=== PATIENT | female | born 1930 | race Caucasian/White ===

== ENCOUNTER 2016-12-26 15:57 | Inpatient (IN) | payer MEDICARE, BC ==
[~2016-12-26] VITALS: Ht 167.6 cm; Wt 79.5 kg
[2016-12-26] MEDS ORDERED: LIORESAL 10 MG10 MG PO (20:46)
[2016-12-26] MEDS ORDERED: MYSOLINE 50 MG50 MG PO ×2 (20:47→20:50)
[2016-12-26] MEDS ORDERED: XANAX0.25 MG PO (20:48)
[2016-12-26] MEDS ORDERED: ULTRAM50 MG PO (20:49)
[2016-12-26] MEDS ORDERED: REMERON15 MG PO (20:51)
[2016-12-26] MEDS ORDERED: CARDURA1 MG PO (20:51)
[2016-12-26] MEDS ORDERED: NORVASC10 MG PO (20:51)
[2016-12-26] MEDS ORDERED: IPRATROPIUM BR21 MCG NASAL (20:53)
[2016-12-26] MEDS ORDERED: AZELASTINE137 MCG/0. NASAL (20:53)
[2016-12-26] MEDS ORDERED: DIOVAN80 MG PO (20:54)
[2016-12-26] MEDS ORDERED: FLORANEX / LACT1 TAB PO (20:55)
[2016-12-26] MEDS ORDERED: VENTOLIN HFA18 GM INH (20:56)
[2016-12-26] MEDS ORDERED: FISH OIL 1,0001 CA1 PO (20:57)
[2016-12-26] MEDS ORDERED: PATANOL 0.1 % OP5 ML EACH EYE (20:58)
[2016-12-26] MEDS ORDERED: MULTIPLE VITAMI1 TA1 PO (20:58)
[2016-12-26] MEDS ORDERED: BAYER CHEWABLE81 MG PO (20:59)
--- NOTE | 2016-12-26 23:10 | NUR ---
Patient arrived via EMS at 20:00 from [facility], VSS, verbal consent from by telephone, physician aware of arrival, medications entered, labs ordered, code status is full code per , no known allergies, Code word is 'Such as" , patient had eloped from long-term and was moving [place] [facility] [place] [facility] [place] the area, brought to [facility] ER by police, patient diagnosed with closed compression fracture of L4 lumbar vertebre at [facility].
[2016-12-26 23:42] VITALS: BP 148/77; BMI 24.3
--- NOTE | 2016-12-27 04:15 | NUR ---
PATIENT REFUSED EKG
[2016-12-27 07:47] VITALS: BP 125/80
--- NOTE | 2016-12-27 11:17 | NUR ---
B) PATIENT IS MANIPULATIVE, ATTENTION SEEKING, SHE IS NOT LISTENING, SHE WANTS TO SPEAK OVER ANYONE THAT SPEAKS TO HER, SHE REFUSED HER VALSARTAN THIS AM. SHE WANTS TO PICK AND CHOOSE. PATIENT TALKS ABOUT BEING ANGRY WITH HER DAUGHTER AND HER . SHE C/O BACK PAIN AND HOW SHE HAS TO HAVE HELP. SHE C/O THAT SHE SLEPT IN THE BATHROOM LAST NIGHT BECAUSE SHE WAS COLD. PATIENT IS TRYING TO SPEAK OVER EVERYONE. I) PROVIDE PRESCRIBED MEDS. R) PATIENT IS COMPLIANT WITH MEDS AND UNIT MILIEU. P) CONT. POC.
[2016-12-27 16:09] VITALS: BMI 24.2
[2016-12-27 19:00] VITALS: BP 179/88
--- NOTE | 2016-12-28 01:28 | NUR ---
B) Recieved patient in the day room alert and oriented X 3, hyperverbal and intrusive, social with peers, attention seeking, I) Administered perscribed medications, redirected as needed, monitored for safety, R) Medication compliant, refuses to sleep in her bed, sleeping in her wheelchair in her room, P) Continue plan of care.
[2016-12-28 07:57] LABS: BASOPHILS 0.2 % (0-2); EOSINOPHILS 0.2 % (0-7); HEMATOCRIT 37.4 % (36.0-48.0); IMMATURE GRANULOCYTES 0.5 % (0-5); LYMPHOCYTES 20.5 % (15-50); MCH 31.6 pg (26.0-34.0); MCHC 32.1 g/dL (31.0-37.0); MCV 98.4 fL (80.0-100.0); MEAN PLATELET VOLUME 9.6 fL (7.4-10.4); MONOCYTES 6.8 % (2-11); NEUTROPHILS 71.8 % (40-80); PLATELET COUNT 159 10x3/uL (130-400); RDW 13.5 % (11.5-14.5); WBC 4.1 10x3/uL (4.8-10.8)
[2016-12-28 08:26] LABS: HEMOGLOBIN A1C 5.9 % (4.8-6.0)
[2016-12-28 08:31] LABS: ANION GAP 12.3 mmol/L (8-16); BILIRUBIN - TOTAL 0.23 mg/dL (0.2-1.3); CALCIUM 8.1 mg/dL (8.5-10.1); CARBON DIOXIDE 29.4 mmol/L (21.0-32.0); CHOL - HDL RATIO 2.9 ratio (2.3-4.1); CREATININE - SERUM 0.9 mg/dL (0.6-1.3); LDL-HDL RATIO 1.7 ratio (1.5-3.5); POTASSIUM - SERUM 4.7 mmol/L (3.5-5.1); PROTEIN - SERUM 6.6 g/dL (6.4-8.2); THYROID STIMULATING HORMONE 1.69 uIU/mL (0.36-3.74)
[2016-12-28 09:07] VITALS: BP 129/54
--- NOTE | 2016-12-28 11:10 | NUR ---
B) PATIENT IS TOO SLEEPY THIS AM TO TAKE HER PILLS AND SHE WAS NOT ABLE TO AWAKEN FOR HER TESTING WITH DR. LEACH TODAY. SHE IS STILL SLEEPING IN DAY ROOM NOW.
--- NOTE | 2016-12-28 14:16 | NUR ---
PATIENT IS AWAKE AND SHE IS CONFUSED, SHE IS SPEAKING WITH A PATIENT WHO IS SEVERLY DEMENTED AND SHE IS MAKING A FULL CONVERSATION, SHE IS ELEVATED IN MOOD. PATIENT IS HYPERVERBAL AND CONTINUES TO MAKE DELUSIONAL STATEMENTS. SHE IS SAYING THAT "GOD IS WORKING IN PERILOUS WAYS" SHE IS TELLING OTHER PATIENTS THAT THEY NEED TO TELL ALL OF THEIR SINS BECAUSE THEY HAVE TO BRING EVERYTHING TO A HEAD. SHE IS TRYING TO TALK OTHER PATIENTS INTO GETTING A HOME AND THEY CAN RENT A ROOM.
--- NOTE | 2016-12-28 15:52 | NUR ---
PATIENT IS MANIPULATING AND TELLING ANOTHER PATIENT THAT SHE IS FINE, NO PROBLEMS WITH HER MENTALLY, SHE NEEDS TO MOVE OUT AND GET HER OWN PLACE AND GO GET DNA ON HER CHILD TO PROVE SHE IS THE MOTHER. THE PATIENT DOESN'T KNOW IF SHE HAS A CHILD. PATIENT IS ARGUING AND ESCALATING. SHE IS CONFUSING THE OTHER PATIENT.
--- NOTE | 2016-12-28 16:42 | NUR ---
PATIENT FUSSING ABOUT THAT LAB NEVER HAS TAKEN HER BLOOD. EXPLAINED TO HER THAT SHE HAS REFUSED TWO TIMES, BUT SHE BECAME ARGUMENTATIVE. STOPPED DISCUSSING THE SUBJECT WITH THE PATIENT.
--- NOTE | 2016-12-28 17:58 | NUR ---
PATIENT IS CURSING AND RANTING AND RAVING BECAUSE SHE WANTS HER TRAY BROUGHT TO HER. SHE REFUSES TO GET UP AND WALK, PATIENT HAS BEEN WALKING USING A WALKER. NOW, SUDDENLY SHE IS DEMANDING THAT STAFF BRING HER TRAY. SHE IS SCREAMING "I AM HYNGRY" EXPLAINED TO HER THAT SHE CAN AMBULATE TO THE DAY ROOM WHERE HER DINNER IS WAITING. SHE BEGINS DEMANDING THAT I ORDER AN MRI. EXPLAINED TO HER CALMLY THAT IS A DOCTORS CALL. PATIENT BEGINS SCREAMING AND YELLING. EXPLAINED TO HER THAT SHE NEEDS TO GET HER VOICE AND HER BEHAVIOR UNDER CONTROL SHE CAN HAVE A PRN MEDICATION FOR HER ANXIETY AND AGITATION. SHE STOPPED YELLING AND SCREAMING, BUT THEN BEGAN SPEAKING ABOUT THE STAFF IN A DEAMEANING, NEGATIVE MANNER. SAYING "WELL, YOU CAN ORDER AN MRI, MY CHIROPRACTOR DID, WELL HE HAS MORE SENSE THAN YOU DO" EXPLAINED THAT HER NEGATIVE COMMENTS WERE NOT WELCOME AND SHE NEEDED TO SELF CALM. PATIENT IS SO LABILE. SHE VASCILATES BETWEEN SMILING AND BEING ELEVATED AND HAPPY TO BEING IRRITABLE AND NEGATIVE AND ARGUMENTATIVE.
[2016-12-28 19:30] VITALS: BP 169/86
--- NOTE | 2016-12-29 00:53 | NUR ---
B) Recieved patient in the hallway, alert and oriented to person and place, hyperverbal, talking to other patients telling them what they should do, intrusive in the care of other patients, I) Administered perscribed medications, redirected as needed, R) Medication compliant, defiant toward staff, refuseing to go to bed, remains in the hallway in her wheelchair instead of going to bed, P) Continue plan of care.
[2016-12-29 06:13] LABS: RAPID PLASMA REAGIN Non Reactive (Non Reactive)
[2016-12-29 08:11] VITALS: BP 154/78
[2016-12-29 08:15] LABS: FOLATE (FOLIC ACID) - SERUM 13.3 ng/mL (>3.0)
--- NOTE | 2016-12-29 12:19 | NUR ---
B) PATIENT IS GRANDIOSE AND MANIPULATIVE. SHE IS DELUSIONAL IN HER THINKING, SHE BELIEVES THAT HER WORDS ARE HELPING ALL OF THE OTHER PATIENTS FEEL WELL. SHE IS ARGUING WITH STAFF. WHEN PATIENT IS REMINDED TO GET IN HER OWN VADIM MEANING TO ATTEND TO HER OWN AFFAIRS AND NOT OTHER PATIENTS SHE CONTINUES TO TELL THEM THEY ARE "FINE" STAFF ARE THE SICK ONES, SHE ALSO HAS BEEN PITTING STAFF ONE AGAINST THE OTHER BY SAYING HOW "GOOD' ONE IS COMPARED TO THE OTHER. PATIENT IS CRYING AND COMPLAINING THAT SHE HAS NOT EATEN IN 2 DAYS AND HAS HAD TO SLEEP IN THE BATHROOM, WHEN REDIRECTED TO REALITY PATIENT BECAME ARGUMENTATIVE AND YELLING. SHE HAS BEEN ARGUING AND NOT LISTENING TO REDIRECTION ALL AM, MAKING DEMANDS ABOUT WHAT SHE SHOULD GET TO WATCH ON TV AND WHAT SHE SHOULD GET TO EAT RIGHT NOW. I) ATIVAN 0.5 MG AND HALDOL 2 MG IM GIVEN IN LEFT HIP. R) PATIENT SCREAMING AND YELLING HOW SHE WILL TURN US INTO MEDICARE AND HOW WE ARE EVIL. PATIENT THEN SAYS "I'M SORRY, I KNOW YOU WERE MADE TO DO THAT, I WILL PRAY FOR ALL OF YOU, THEN SHE BEGINS A PRAYER, BUT THEN ANOTHER PATIENT BEGINS TO TALK TO ANOTHER PATIENT AND SHE STOPS PRAYING TO INTRUDE UPON THEIR CONVERSATION. MANY ATTEMPTS HAVE BEEN MADE TO EXPLAIN TO HER THAT SHE IS SICK AND NEEDS TO BE HERE. PATIENT WANTS TO ARGUE AND DIAGNOSE THE PATIENTS AND THE STAFF. SHE OFTEN TELLS OTHER MANIC PATIENTS THEY ARE FINE AND SHE HAS STATED THE DEMENTED PATIENTS ARE FINE ALSO AND THEY NEED TO GET TOGETHER AND RENT A HOUSE. PATIENT IS NOT AMBULATING TODAY. SHE HAS CHOSEN NOT TO. SHE WAS ABLE TO WALK WHEN SHE CAME IN. P) CONT. POC.
--- NOTE | 2016-12-29 12:34 | NUR ---
EFRAIN PROVIDED A WALKER, NOW SHE IS YELLING "I CAN'T WALK, THEY TOOK MY CANE" PATIENT IS BEING DRAMATIC IN HER YELLING AND ACTIONS STATING "GOD HELP ME".
--- NOTE | 2016-12-29 13:00 | NUR ---
PATIENT IS STILL TALKING AND RAMBLING, TELLING THE OTHER PATIENTS HOW THEY ARE ALL FINE, THERE'S NOTHING WRONG WITH YOU, YOU NEED TO DO THUS AND THUS. SHE HAS THE GRANDIOSE BELEIF THAT SHE HERSELF HAS MADE THE PATIENTS SO MUCH BETTER.
--- NOTE | 2016-12-29 13:40 | NUR ---
PATIENT IS GETTING QUIET, SHE IS INTERMITTANT. SHE DOSES OFF THEN SAYS "I NEED THE TV CHANNEL CHANGED" THEN THE NEXT BREATH SHE WILL BE SNORING. PATIENT DID THIS FOR ABOUT 30 MINUTES UNTIL SHE FELL ASLEEP.
--- NOTE | 2016-12-29 14:09 | NUR ---
ONE OF PATIENTS DAUGHTERS CALLED AND DID LET HER KNOW HOW HER BEHAVIOR HAS BEEN. DAUGHTER SAYS SHE IS FULL AWARE OF HER MOTHERS BEHAVIOR, BUT SHE WAS HOPING SHE WAS A LITTLE BETTER. SHE SAYS SHE WILL TRY TO CALL LATER AT PHONE CALL TIMES, BUT SHE SAYS SHE IS AWARE THAT HER MOTHER IS ANGRY WITH ALL OF THE GIRLS AND PROBABLY WILL NOT SPEAK TO HER.
--- NOTE | 2016-12-29 17:40 | NUR ---
PATIENT'S SON CALLED TO SPEAK TO HIS MOTHER, BUT PATIENT IS SLEEPING.
[2016-12-29 19:30] VITALS: BP 170/78
--- NOTE | 2016-12-29 19:41 | NUR ---
RECEIVED IN HALLWAY. SITTING IN RECLINER OUTSIDE OF NURSES STATION. HYPERVERBAL. CALM AND COOPERATIVE WITH CARE AND ASSESSMENTS. ATTENTION SEEKING. CONTINUES TO SIT IN RECLINER IN HALLWAY. CONTINUE PLAN OF CARE
[2016-12-30 07:00] VITALS: BP 128/72
--- NOTE | 2016-12-30 18:01 | NUR ---
B) PATIENT IS RAMBLING ON AND ON, SHE HAS NO BOUNDARIES AND SHE IS BEING INTRUSIVE. SHE HAS NOT YELLED OR CURSED, JUST GETS IN EVERYONE'S CONVERSATION. SHE IS LABILE AND CRIES AT TIMES. DURING VISITATION SHE BEGAN CRYING SAYING "I DON'T HAVE ANY FAMILY, NO ONE WILL EVER COME VISIT ME" PATIENT IS DRAMATIC IN HER BEHAVIOR. IT IS EXTREME NEGATIVE OR EXTREME POSITIVE. I) PROVIDE PRESCRIBED MEDS AND REDIRECT NEEDED. R) PATIENT IS COMPLIANT WITH MEDS AND UNIT MILIEU. P) CONTINUE POC.
[2016-12-30 19:30] VITALS: BP 153/72
--- NOTE | 2016-12-30 20:06 | NUR ---
RECEIVED IN HALLWAY. SITTING IN A CHAIR AT NURSES STATION. ALERT AND ORIENTED. ATTENTION SEEKING. DEMANDING. COOPERATIVE WITH ASSESSMENT AND VITALS. REDIRECT AND REORIENT NEEDED. RESTING IN CHAIR IN HER ROOM AT THIS TIME. CONTINUE PLAN OF CARE
--- NOTE | 2016-12-31 00:03 | NUR ---
PATIENT REQUESTED SOMETHING FOR ANXIETY. PRN ATIVAN 0.5 MG PO PULLED AND SCANNED. PATIENT THEN STATED SHE WOULD NOT TAKE THAT DOSE AND WANTED ONLY PART OF IT. REFUSUNG HER ORDERED DOSAGE.
[2016-12-31 07:00] VITALS: BP 163/70
[2016-12-31 10:11] LABS: VITAMIN D 25 HYDROXY 31.5 ng/mL (30.0-100.0)
--- NOTE | 2016-12-31 10:30 | NUR ---
LYING IN BED, INCONTINENT, AND YELLING OUT WITH A BACK SPASM. VERY DRAMATIC DURING PROCESS OF GETTING HER OUT OF BED. ADMINISTER PRESCRIBED MEDS. VSS. COMPLIANT WITH TAKIMG MEDS. MONITOR FOR SAFETY AND FALLS. CONTINMUE POC.
[2016-12-31 19:45] VITALS: BP 144/82
--- NOTE | 2016-12-31 22:16 | NUR ---
RECEIVED IN BEDROOM. SITTING IN RECLINER WITH EYES CLOSED. REFUSED MEDS ON FIRST ATTEMPT. CALM AND COOPERATIVE WITH CARE AND ASSESSMENTS. YELLING OUT. REDIRECT AND REORIENT. TOOK PM MEDS AFTER REDIRECTION. RESTING IN RECLINER IN BEDROOM AT THIS TIME. CONTINUE PLAN OF CARE
[2017-01-01 08:00] VITALS: BP 131/77
--- NOTE | 2017-01-01 13:54 | PN ---
PATIENT:YELENA FORBES MEDICAL RECORD: [id number] LOCATION:[facility] ADMISSION DATE: 12/26/16 PROGRESS NOTE DATE OF SERVICE: 12/31/2016 SUBJECTIVE: The patient's case was discussed with staff. She has no new complaint. OBJECTIVE: The patient denies intent to harm herself or others. She generally tolerates her medicines well. She is currently making what appeared to be delusional statements about her . ASSESSMENT: No change in diagnoses. PLAN: Supportive and educational interventions were made. The patient is tolerating her medications well. TRANSINT:[id number] Voice Confirmation ID: [id number] DOCUMENT ID: [id number] ADIEL CRAFT MD at 1354 CC: [id number] DICTATION DATE: 12/31/16909 INDUSTRIAL EQUIPMENT MECHANIC: 12/31/16 0951 ADM IN [place] [id number] [place] [id number]
[2017-01-01 19:30] VITALS: BP 172/84
--- NOTE | 2017-01-01 19:34 | NUR ---
B) SITTING IN RECLINER IN ROOM, STARTED SCREAMING AND YELLING OUT WITH HER BACK SPASMING. ASSISTED PATIENT WITH PUTTING ON SCRUB PANTS. AMBULATED INTO HALLWAY. RAMBLES ON CONSTANTLY WITH STAFF AND PEERS, GOES FROM ONE SUBJECT TO ANOTHER. TALKS NON-STOP AND OVER DRAMATIC ABOUT EVERYTHING. I) ADMINISTERED PRESCRIBED MEDICATIONS. VSS. R) CONPLAINT WITH TAKING MEDS, P) WILL CONTINUE WITH PLAN OF CARE.
--- NOTE | 2017-01-01 21:40 | NUR ---
RECEIVED IN HALLWAY. SITTING IN WHEELCHAIR AT NURSES STATION. HYPERVERBAL. VERBALLY ABUSIVE. INTRUSIVE. REFUSED VITAL SIGNS. REFUSED TO GO TO BED. BECAME COMBATIVE WTIH REDIRECTION AT BEDTIME. HITTING NURSE WITH BRUSH AND MAGAZINE. SCRATCHING MHT. REDIRECT AND REORIENT NEEDED. TOOK PM MEDS WITH REDIRECTION. ALLOWED PM VITALS WITH MED PASS. RESTING WITH EYES CLOSED IN RECLINER IN ROOM AT THIS TIME. CONTINUE PLAN OF CARE.
--- NOTE | 2017-01-02 04:30 | NUR ---
PATIENT STATED THAT SHE WOULD PUT HERSELF IN THE FLOOR AGAIN MANY TIMES. RETURNED TO HER BED AND WITH IN 15 MINUTES PATIENTS BED ALARM SOUNDED WITH ANOTHER ATTEMPT TO PUT HERSELF BACK INTO FLOOR.
[2017-01-02 07:44] VITALS: BP 145/89
--- NOTE | 2017-01-02 07:56 | PN ---
PATIENT:YELENA FORBES MEDICAL RECORD: [id number] LOCATION:[facility] ADMISSION DATE: 12/26/16 PROGRESS NOTE DATE OF SERVICE: 01/01/2017 SUBJECTIVE: The patient's case was discussed with staff. She has no new complaint. OBJECTIVE: The patient is in good behavioral control with limited insight about her condition. She generally tolerates her medicines well. Eye contact is fair. Concentration is fair. She does have some mood lability. ASSESSMENT: No change in diagnoses. PLAN: The patient will be treated with Depakote at a slightly higher dose. Her blood level yesterday was 28. I am going to double the amount she is getting and hopefully achieve a therapeutic blood level in a few days. TRANSINT:[id number] Voice Confirmation ID: [id number] DOCUMENT ID: [id number] ADIEL CRAFT MD at 0756 CC: [id number] DICTATION DATE: 01/01/17 1425 MOTOR MECHANIC: 01/01/17 2041 ADM IN [place] [id number] [place] [id number]
--- NOTE | 2017-01-02 12:00 | NUR ---
B) PATIENT CONTINUES WITH HYPERVERBALIZATION, SHE IS INTO OTHER PATIENTS BUSINESS, SHE IS CONCERNED WITH HERSELF ONLY. SHE IS COMPLAINING ABOUT NIGHT SHIFTS CARE FOR SHE AND THE OTHER PATIENTS, SHE NEEDED TO BE REDIRECTRED ABOUT THAT. PATIENT TRIES TO PIT ONE STAFF AGAINST THE OTHER. PATIENT AMBULATES WITH A WALKER OR SELF PROPELS WITH A W/C. I) PROVIDE PRESCRIBED MEDS. R) PATIENT IS COMPLIANT WITH MEDS, ALTHOUGH, SHE SAID SHE DIDN'T WANT TO TAKE THE DEPAKOTE SHE DOES NOT THINK SHE HAS ANYTHING WRONG WITH HER. P) CONTINUE POC.
--- NOTE | 2017-01-02 15:30 | NUR ---
Nutrition Follow Up: Pt is eating 90% meal avg on a regular diet. No new wt to assess. No BM since admit (x 7 days). Labs reviewed. Meds noted including Colace, MV. Rec continue current diet. RD following.
[2017-01-02 20:02] VITALS: BP 103/58
--- NOTE | 2017-01-03 00:36 | NUR ---
B) Recieved patient in her room, alert and oriented to self and being in a hospital, negative outlook, intrusive and tries to staff split, I) Administered perscribed medications after explaning every pill, R) Medication compliant, argumentive and unpleasant, P) Continue plan of care.
--- NOTE | 2017-01-03 08:22 | PN ---
PATIENT:YELENA FORBES MEDICAL RECORD: [id number] LOCATION:[facility] ADMISSION DATE: 12/26/16 PROGRESS NOTE DATE OF SERVICE: 01/02/2017 SUBJECTIVE: The patient's case was discussed with staff. She has no new complaint. OBJECTIVE: The patient denies intent to harm herself or others. She generally tolerates her medicines well. Eye contact is fair. Concentration is fair. She still makes a number of delusional statements. ASSESSMENT: No change in diagnoses. PLAN: Current medicines and therapies have been reviewed. Her long-term prognosis is guarded. Brief supportive and educational interventions were made. TRANSINT:[id number] Voice Confirmation ID: [id number] DOCUMENT ID: [id number] ADIEL CRAFT MD at 0822 CC: [id number] DICTATION DATE: 01/02/17 1617 PINNER PRINTED CIRCUIT BOARDS: 01/03/17 0058 ADM IN [place] [id number] [place] [address]
[2017-01-03 09:21] VITALS: BP 155/77
--- NOTE | 2017-01-03 13:00 | NUR ---
B) PATIENT IS AWAKE AND ALERT, SHE SOCIALIZES AND INTERACTS WITH PEERS AND STAFF. PATIENT WALKS WITH A WALKER. I) PROVIDE PRESCRIBED MEDS. R) PATIENT IS COMPLIANT WITH MEDS AND UNIT MILIEU. P) CONTINUE POC.
[2017-01-03 18:53] VITALS: BP 152/75
--- NOTE | 2017-01-04 00:37 | NUR ---
B) Recieved patint in the hallway, alert and oriented to self and being in a hospital, social and friendly at times, demanding at times, I) Administered perscribed medications, monitored for falls and safety, R) Medication compliant, p) Continue plan of care.
[2017-01-04 08:40] VITALS: BP 143/84
--- NOTE | 2017-01-04 09:21 | NUR ---
YOGI SPOKE WITH DTR, HUMAIRA, ABOUT TREATMENT AND DISCHARGE PLANNING. YOGI REPORTED MEDICATION REGIMEN. YOGI ALSO STATED PT WILL HAVE COGNITIVE TESTING TODAY. HUMAIRA VERBALIZED UNDERSTANDING.
--- NOTE | 2017-01-04 11:13 | NUR ---
B) PATIENT IS AWAKE AND ALERT AND ORIENTED X3, SHE, HOWEVER HAS POOR INSIGHT INTO HER ILLNESS, SHE IS IN DENIAL OF HAVING BIPOLAR AND DOES NOT FEEL SHE HAS DONE ANYTHING ABNORMAL. SHE IS IN BELIEF THAT SHE IS THE "VICTIM" AND HER AND DAUGHTER ARE OUT TO GET HER MONEY AND TAKE CONTROL OF HER. PATIENT AMBULATES WITH A WALKER. VALUE ANALYST SAID SHE WAS NEGATIVE ALL NIGHT LONG. I) PROVIDE PRESCRIBED MEDS, REDIRECT TO APPROPRIATATE BEHAVIOR. R) PATIENT NEEDS MULTIPLE PROMPTS TO STAY IN HER OWN VADIM AND TRY TO MIND HER OWN AFFAIRS, NIT OTHER PATIENTS. P) CONTINUE POC.
[2017-01-04 15:18] VITALS: BMI 25.0
[2017-01-04 19:30] VITALS: BP 178/86
--- NOTE | 2017-01-05 03:45 | NUR ---
B) Patient is alert and oriented to self and hospital, poor insight into why she is here, negative outlook and episodes of crying followed by thanking staff for taking care of her, I) Administered perscribed medications, monitored for safety and falls, R) Medication compliant, needy at times, P) Continue plan of care.
[2017-01-05 10:02] VITALS: BP 178/89
--- NOTE | 2017-01-05 13:00 | NUR ---
B) AWAKE AND ORIENTED X3. SITTING IN RECLINER, NO DISTRESS NOTED. CALM AND COOPERATIVE WITH ASSESSMENT. HYPERVERBAL AND ANSWERS QUESTIONS FOR OTHERS. I) ADMINISTERED PRESCRIBED MEDICATIONS. REDIRECT AND REORIENTED NEEDED. R) COMPLIANT WITH TAKING MEDICATIONS. MONITOR FOR SAFETY AND FALLS. P) WILL CONTINUIE PLAN OF CARE.
[2017-01-05 19:30] VITALS: BP 121/89
--- NOTE | 2017-01-05 21:18 | NUR ---
B) PATIENT IS HER SAME OVERLY TALKATIVE SELF, SHE IS IN OTHER [employer] BUSINESS AND SHE IS REPETITIVE IN HER COMMENTS AND SHE IS ORIENTED TO PERSON AND TIME. PATIENT AMBULATES WITH HER WALKER. TONIGHT SHE HAS NOT BEEN AGGRESSIVE OR BEEN IN A [place]. I) PROVIDE PRESCRIBED MEDS AMD REDIRECT TO APPROPRIATE BEHAVIOR NEEDED. R) PATIENT IS COMPLIANT WITH MEDS. TONIGHT SHE TOOK HER MEDS AND SHE WAS DIRECTED TO HER ROOM AND SHE FELL ASLEEP EASILY. P) CONTINUE POC.
--- NOTE | 2017-01-06 08:00 | NUR ---
ASSESSMENT COMPLETE. SITTING UP ON SIDE OF BED. R LEG SWOLLEN AND REDDENED. SPEAKS FREQUENTLY ABOUT HELPING OTHERS AND PRAYING FOR OTHERS.
[2017-01-06 09:23] VITALS: BP 135/69
--- NOTE | 2017-01-06 15:05 | NUR ---
SITTING UP IN CHAIR. HAVING CONVERSATION WITH ANOTHER PATIENT. VERY TALKATIVE AT THIS TIME. MOOD CALM.
[2017-01-06 19:30] VITALS: BP 123/71
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
--- NOTE | 2017-01-07 00:36 | NUR ---
Patient got up, while staff were looking, pulled her briefs down urinated in her bed, pulled her briefs back on and sat in her urine. Refused staff assistance to go to the toilet to void. Loud yelling, rude, demanding, but then did get out of bed and allow staff to change all the linens and assist her with hygiene care and changing into dry clothes. Resettled back into bed.
[2017-01-07 07:48] VITALS: BP 116/66
--- NOTE | 2017-01-07 09:48 | PN ---
PATIENT:YELENA FORBES MEDICAL RECORD: [id number] LOCATION:[facility] ADMISSION DATE: 12/26/16 PROGRESS NOTE DATE OF SERVICE: 01/04/2017 SUBJECTIVE: No new complaint. OBJECTIVE: The patient has exhibited a great deal of problematic behavior over the last 24 hours. She is very intrusive, attention seeking, and disruptive, and has to be redirected. She is receiving neuropsychological testing today. On exam, mood is somewhat irritable. Affect is childlike. Speech is tangential. Content of thought focuses on somatic concerns. Sensorium shows no change. ASSESSMENT: No change in diagnosis. PLAN: 1. Maintain current medication. 2. Continue supportive therapy. TRANSINT:[id number] Voice Confirmation ID: [id number] DOCUMENT ID: [id number] ALONDRA FIERRO III, MD at 0948 CC: [id number] DICTATION DATE: 01/04/17 1229 GRINDING WHEEL DRESSER: 01/04/17 2117 ADM IN [place] [id number] [place] [id number]
--- NOTE | 2017-01-07 12:28 | NUR ---
PT CONTINUES TO MAKE RANDOM DELUSIONAL STATEMENTS. PT IS INTRUSIVE INTO THE CARE OF OTHERS. PT IS HOARDING DIFFERENT ITEMS IN HER ROOM AND REFUSES TO ALLOW STAFF TO REMOVE THEM. EDUCATED PT ON IMPORTANCE OF NOT HOARDING THINGS. FREQUENT REDIRECTION DONE WITH PT ON CURRENT ENVIORNMENT AND REALITY BASES THINKING. MEDICATIONS GIVEN ORDERED. FALL PRECAUTIONS MAINTAINED. WILL CONTINUE TO MONITOR AND CONTINUE WITH PLAN OF CARE.
--- NOTE | 2017-01-07 13:33 | PN ---
PATIENT:YELENA FORBES MEDICAL RECORD: [id number] LOCATION:[facility] ADMISSION DATE: 12/26/16 PROGRESS NOTE DATE OF SERVICE: 01/03/2017 SUBJECTIVE: The patient's case was discussed with staff. She has no new complaint. OBJECTIVE: The patient denies that she would seek to harm herself or others. She generally tolerates her medicines well. She is in good behavioral control today. ASSESSMENT: No change in diagnoses. PLAN: The patient will have a Depakote level checked. Her long-term prognosis is guarded. Brief supportive and educational interventions were made. TRANSINT:[id number] Voice Confirmation ID: [id number] DOCUMENT ID: [id number] ADIEL CRAFT MD at 1333 CC: [id number] DICTATION DATE: 01/03/17 1343 UX UI DESIGNER: 01/03/17 2157 ADM IN [place] [id number] [place] [id number]
[2017-01-07 19:29] VITALS: BP 152/89
--- NOTE | 2017-01-08 02:33 | NUR ---
B) Patient alert and oriented to self and being in hospital, argumentive and refusing care one minute then thanking you for care a few minutes later, intrusive in the care of other patients, I) Administered perscribed medications, redirected as needed for intrusive behavior, R) Medication compliant, resting now quietly in bed, P) Continue plan of care.
[2017-01-08 10:18] VITALS: BP 171/72
--- NOTE | 2017-01-08 10:29 | NUR ---
PT CONTINUES TO BE INTRUSIVE INTO THE CARE OF OTHER PTS. PT REQUIRES FREQUENT REDIRECTION INTO REALITY AND APPROPRIATE BEHAVIOR. NO AGGRESSION NOTED. PT DOES BECOME AGITATED WHEN DISCUSSING HER FAMILY. ENCOURAGED PT TO USE HER COPING SKILLS TO DEAL WITH HER EMOTIONS. VERBALIZED UNDERSTANDING. MEDICATIONS GIVEN ORDERED. FALL PRECAUTIONS MAINTAINED. WILL CONTINUE TO MONITOR AND CONTINUE WITH PLAN OF CARE.
--- NOTE | 2017-01-08 14:26 | PN ---
PATIENT:YELENA FORBES MEDICAL RECORD: [id number] LOCATION:[facility] ADMISSION DATE: 12/26/16 PROGRESS NOTE DATE OF SERVICE: 01/07/2017 SUBJECTIVE: The patient's case was discussed with staff. She has no new complaint. OBJECTIVE: The patient denies intent to harm herself or others. She generally tolerates her medicines well. ASSESSMENT: No change in diagnoses. PLAN: Supportive and educational interventions were made. The patient's long-term prognosis is guarded. I am going to check a Depakote level tomorrow morning. TRANSINT:[id number] Voice Confirmation ID: [id number] DOCUMENT ID: [id number] ADIEL CRAFT MD at 1426 CC: [id number] DICTATION DATE: 01/07/17 1341 FERRYBOAT OPERATOR: 01/07/17 2215 ADM IN [place] [id number] [place] [address]
--- NOTE | 2017-01-08 14:35 | NUR ---
Nutrition follow-up: Diet: Regular PO intake ~75% average of meals labs reviewed +BM Wt: 155# RDN following.
[2017-01-08 19:30] VITALS: BP 159/86
--- NOTE | 2017-01-09 00:34 | NUR ---
B) Patient alert and oriented to self and being in a hospital, calm and cooperative, intrusive with other patients at times, I) Administered perscribed medications, monitored for safety, redirected as needed, R) Medication compliant, wants to know the name of every pill, P) Continue plan of care.
[2017-01-09 08:37] VITALS: BP 123/89
--- NOTE | 2017-01-09 10:28 | NUR ---
B) Rec'd pt in dining room for b'fast, alert, hyper-verbal, attempts to diagnose other patients. Appetite good, feeds self, no difficulty chewing/swallowing. I) Admin meds as ordered and provide group therapy as directed. R) No s/s adverse reaction to meds, participates in group, often becoming intrusive. P) Cont plan of care including meds and group therapy while encouraging compliance with meds and restraint from being intrusive.
--- NOTE | 2017-01-09 14:30 | PN ---
PATIENT:YELENA FORBES MEDICAL RECORD: [id number] LOCATION:[facility] ADMISSION DATE: 12/26/16 PROGRESS NOTE DATE OF SERVICE: 01/08/2017 SUBJECTIVE: The patient's case was discussed with staff. She has no new complaint. OBJECTIVE: The patient is in good behavioral control with limited insight about her condition. She has been intrusive, but not openly aggressive or disruptive. She does have a therapeutic Depakote level of 75. ASSESSMENT: No change in diagnoses. PLAN: Supportive and educational interventions were made. Long-term prognosis is guarded. TRANSINT:[id number] Voice Confirmation ID: [id number] DOCUMENT ID: [id number] ADIEL CRAFT MD at 1430 CC: [id number] DICTATION DATE: 01/08/17 1510 E TAILER: 01/08/17 1909 ADM IN [facility] [address] [id number]
[2017-01-09 21:41] VITALS: BP 148/80
--- NOTE | 2017-01-10 01:16 | NUR ---
B) Recieved patient in the day room, alert and oriented to self and hospital, intrusive in the care of other patients, I) Administered perscribed medications, monitored for safety, R) Medication compliant, resting now quietly, P) Continue plan of care.
[2017-01-10 08:09] VITALS: BP 128/68
--- NOTE | 2017-01-10 12:20 | NUR ---
B) PATIENT IS ALERT AND ORIENTED TIMES PERSON AND SELF, SHE HAS NO INSIGHT INTO HER ILLNESS OR SITUALTION. PATIENT CAN AMBULATE, BUT TODAY HER BILTERL LOWER EXTREMITIES ARE EDEMATOUS AND SHE C/O HIP PAIN. I) PROVIDE PRESCRIBED MEDS. R) PATIENT IS COMPLIANT WITH MEDS AND UNIT MILIEU. P) CONTINUE POC.
--- NOTE | 2017-01-10 13:40 | PN ---
PATIENT:YELENA FORBES MEDICAL RECORD: [id number] LOCATION:[facility] ADMISSION DATE: 12/26/16 PROGRESS NOTE DATE OF SERVICE: 01/09/2017 SUBJECTIVE: The patient's case was discussed with staff. She has no new complaint. OBJECTIVE: The patient denies intent to harm herself or others. She generally is tolerating her medicines well. Eye contact is fair. ASSESSMENT: No change in diagnoses. PLAN: Brief supportive and educational interventions were made. 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 TRANSINT:[id number] Voice Confirmation ID: [id number] DOCUMENT ID: [id number] ADIEL CRAFT MD at 1340 CC: [id number] DICTATION DATE: 01/09/17 1443 RESIDENTIAL PROGRAM WORKER: 01/09/172005 ADM IN [facility] [address] [place] [address]
--- NOTE | 2017-01-10 14:20 | NUR ---
Nutrition Follow Up: Pt is eating 79% meal avg on a regular diet. +BM 01/09/17. No new wt to assess. Meds noted including MV. No new labs to assess. Rec continue current diet. RD following.
[2017-01-10 19:52] VITALS: BP 134/77
--- NOTE | 2017-01-10 21:00 | NUR ---
B) RECEIVED IN DINING ROOM SITTING AT TABLE READING NEWSPAPER. ALERTAND ORIENTED TO SELF AND HOSPITAL, STILL INTRUSIVE WITH THE CARE OF PATIENTS. I) ADMINISTERED PRESCRIBED MEDICATIONS. ASSESSMENT COMPLETED. VSS. BILATERAL LEGS ARE SWOLLEN AND TIGHT FROM THIGHS TO ANKLES. R) MEDICATION COMPLIANT AND EASILY REDIRECTED WITH RULES TONIGHT. P) CONTINUE WITH PLAN OF CARE AND MONITOR FOR SAFETY.
--- NOTE | 2017-01-10 23:22 | NUR ---
LINZESS 145 MCG PO GIVEN PER REQUEST FOR CONSTIPATION.
[2017-01-11 08:46] VITALS: BP 124/84
--- NOTE | 2017-01-11 11:36 | NUR ---
B) PATIENT CONTINUES TO BE NEGATIVE AND HAVE MULTIPLE SOMATIC C/O AILMENTS, SHE ALSO CONTINUES TO BE INTRUSIVE AND TRIES TO TELL EVERYONE WHAT TO DO AND HOW GREAT THEY ARE DOING. SHE TELL OTHER PATIENTS THEY NEED TO NOT GO TO A LONG TERM, THEY CAN JUST BE HER ROOM MATE. PATIENT AMBULATES WITH A WALKER AT TIMES, BUT TODAY SHE IS USING A W/C. I) PROVIDE PRESCRIBED MEDS AND REDIRECT TO APPROPRIATE BEHAVIOR NEEDED. R) PATIENT IS COMPLIANT WITH MEDS AND SHE WILL REDIRECT, BUT MAY NEED MULTIPLE PROMPTS. P) CONTINUE POC.
--- NOTE | 2017-01-11 12:27 | PN ---
PATIENT:YELENA FORBES MEDICAL RECORD: [id number] LOCATION:[facility] ADMISSION DATE: 12/26/16 PROGRESS NOTE DATE OF SERVICE: 01/10/2017 SUBJECTIVE: The patient's case was discussed with staff. She has no new complaint. OBJECTIVE: The patient is in good behavioral control with limited insight about her condition. She tolerates her medicines well. Eye contact is fair. Concentration is fair. ASSESSMENT: No change in diagnoses. PLAN: Brief supportive and educational interventions were made. Long-term prognosis is guarded. TRANSINT:[id number] Voice Confirmation ID: [id number] DOCUMENT ID: [id number] ADIEL CRAFT MD at 1227 CC: [id number] DICTATION DATE: 01/10/17 1406 RESEARCH AND DEVELOPMENT TESTER: 01/10/17 [address] [facility] [address] [place] [address]
[2017-01-11 19:30] VITALS: BP 153/80
--- NOTE | 2017-01-11 20:15 | NUR ---
ASSESSMENT COMPLETED. SITTING ON SOFA IN DAYROOM, CALM AND COOPERATIVE AT THIS TIME. SHE IS STILL INTRUSIVE ABOUT ANSWERING FOR OTHER PATIENTS. SHE HAS ALL SORT OF ACHES AND PAINS, AND CHANGES SUBJECT TO NEWS ON TV. COMPLIANT WITH TAKING MEDICATIONS. WILL CONTINUE PLAN OF CARE.
[2017-01-12 07:27] LABS: CALC OSMOLALITY 284 mosm/kg (275-300); CALCIUM 7.8 mg/dL (8.5-10.1); CHLORIDE - SERUM 104 mmol/L (98-107); CREATININE - SERUM 0.7 mg/dL (0.6-1.3); GLUCOSE 89 mg/dL (74-106); POTASSIUM - SERUM 3.9 mmol/L (3.5-5.1); SODIUM 142 mmol/L (136-145); UREA NITROGEN 22 mg/dL (7-18); eGFR NON AFRICAN AMERICAN 84 mL/min (90-120)
[2017-01-12 09:07] VITALS: BP 115/57
--- NOTE | 2017-01-12 10:43 | PN ---
PATIENT:YELENA FORBES MEDICAL RECORD: [id number] LOCATION:[facility] ADMISSION DATE: 12/26/16 PROGRESS NOTE DATE OF SERVICE: 01/11/2017 SUBJECTIVE: The patient's case was discussed with staff. She has no new complaint. OBJECTIVE: The patient is in good behavioral control with limited insight about her condition. She tolerates her medicines well. ASSESSMENT: No change in diagnoses. PLAN: I anticipate the patient can be transitioned out of the hospital soon if this level of improvement is maintained. Her long-term prognosis is guarded. TRANSINT:[id number] Voice Confirmation ID: [id number] DOCUMENT ID: [id number] ADIEL CRAFT MD at 1043 CC: [id number] DICTATION DATE: 01/11/17 1254 MERCHANDISE EXECUTION LEADER: 01/11/17 1801 ADM IN [place] [id number] [place] [address]
--- NOTE | 2017-01-12 12:13 | NUR ---
B) PATIENT IS SOMATIC TODAY, SHE IS IN EVERY OTHER PATIENT'S BUSINESS AND TELLING THEM WHAT TO DO SHE IS TRYING TO BOSS OTHER PATIENTS. PATIENT CAN AMBULATE WITH HER WALKER. HER BILATERAL LOWER EXTREMITIES ARE STILL EDEMATOUS, BUT LESS THAN YESTERDAY, SHE IS LISTENING TO STAFF TO KEEP HER LEGS ELEVATED. I) PROVIDE PRESCRIBED MEDS. R) PATIENT IS COMPLIANT WITH MEDS, BUT SHE WILL NOT MIND HER OWN BUSINESS AND SHE CONSTANTLY TALKS. P) CONTINUE POC.
--- NOTE | 2017-01-12 18:44 | NUR ---
PATIENT C/O PAIN, SHE NAMES MULTIPLE AREAS, HER BACK AND HER RIBS WHERE THE BRACE WAS PRESSING ON HER RIBS. ULTRAM 50 MG PO
[2017-01-12 19:30] VITALS: BP 141/72
--- NOTE | 2017-01-12 21:00 | NUR ---
B) RECEIVED IN DAYROOM SITTING IN CHAIR AT TABLE SOCIALIZING WITH PEERS. CALM AND COOPERATIVE WITH ASSESSMENT. IN PLEASANT MOOD TONIGHT. I) ADMINISTERED PRESCRIBED MEDICATIONS. VSS. R) MEDICATION COMPLIANT. MONITOR FOR SAFETY. P) CONTINUE PLAN OF CARE.
[2017-01-13 07:00] VITALS: BP 147/76
[2017-01-13 11:14] VITALS: Ht 167.6 cm; Wt 79.5 kg
--- NOTE | 2017-01-13 11:15 | NUR ---
PT CONTINUES TO BE INTRUSIVE INTO THE CARE OF OTHERS AND REQUIRES FREQUENT REDIRECTION TO WHAT IS APPROPRIATE BEHAVIOR. VERBALIZES UNDERSTANDING. NO AGGRESSION NOTED. PT IS DEMANDING. EDEMA NOTED IN LEGS SO PT EDUCATED ON IMPORTANCE OF ELEVATING HER FEET. PT PLACED IN NAVA CHAIR WITH LEGS ELEVATED. MEDICATIONS GIVEN ORDERED. FALL PRECAUTIONS MAINTAINED. WILL CONTINUE TO MONITOR AND CONTINUE WITH PLAN OF CARE.
--- NOTE | 2017-01-13 11:36 | PN ---
PATIENT:YELENA FORBES MEDICAL RECORD: [id number] LOCATION:[facility] ADMISSION DATE: 12/26/16 PROGRESS NOTE DATE OF SERVICE: 01/12/2017 SUBJECTIVE: The patient's case was discussed with staff. She has no new complaint. OBJECTIVE: The patient is in good behavioral control with limited insight about her condition. She generally tolerates her medications well. She does have a therapeutic Depakote level. ASSESSMENT: No change in diagnoses. PLAN: Supportive and educational interventions were made. Skilled Nursing prognosis is guarded. I am going to increase her Aricept to a total of 10 mg daily. I anticipate that she can be transitioned out of the hospital soon if this level of improvement is maintained. TRANSINT:[id number] Voice Confirmation ID: [id number] DOCUMENT ID: [id number] ADIEL CRAFT MD at 1136 CC: [id number] DICTATION DATE: 01/12/17 1108 HEARING HEALTHCARE PRACTITIONER: 01/12/17 1129 ADM IN [place] [id number] [place] [id number]
[2017-01-13] MEDS ORDERED: ARICEPT10 MG PO (11:41)
[2017-01-13] MEDS ORDERED: MYSOLINE 50 MG50 MG PO (11:43)
[2017-01-13] MEDS ORDERED: DEPAKOTE500 MG PO (11:44)
[2017-01-13] MEDS ORDERED: ZYPREXA5 MG PO (11:45)
[2017-01-13] MEDS ORDERED: ULTRAM50 MG PO (11:45)
[2017-01-13] MEDS ORDERED: COLACE100 MG PO (11:46)
[2017-01-13] MEDS ORDERED: LINZESS145 MCG PO (11:47)
[2017-01-13 19:30] VITALS: BP 124/63
--- NOTE | 2017-01-14 02:46 | NUR ---
B) Patient is alert and oriented to self and hospital, intrusive with staff and care of peers, impatient and demanding at times, I) Administered perscribed medications, monitored for safety, redirected as needed, R) Medication compliant, gave herself a shower in her room, P) Continue plan of care.
[2017-01-14 08:13] VITALS: BP 148/64
--- NOTE | 2017-01-14 11:10 | NUR ---
CALM, COOPERATIVE THIS MORNING. MEDICATIONS GIVEN ORDERED. DISCHARGE INSTRUCTIONS REVIEWED WITH THE PT AND PAPERWORK FAXED TO FACILITY. ALL MEDICATIONS CALLED INTO PHARMACY. VSS.
--- NOTE | 2017-01-15 14:08 | PN ---
PATIENT:YELENA FORBES MEDICAL RECORD: [id number] LOCATION:[facility] ADMISSION DATE: 12/26/16 PROGRESS NOTE DATE OF SERVICE: 01/14/2017 SUBJECTIVE: The patient's case was discussed with staff. She has no active thoughts of harming herself or others. She is pleasant and cooperative. ASSESSMENT: No change in diagnoses. PLAN: The patient will be discharged from the hospital today. She will be maintained on current medicines. Her follow up will be with the primary care usp physician. TRANSINT:[id number] Voice Confirmation ID: [id number] DOCUMENT ID: [id number] ADIEL CRAFT MD at 1408 CC: [id number] DICTATION DATE: 01/14/17 1501 TIER OVER: 01/14/17 1901 DIS IN 01/14/17 [facility] [address] [place] [address]
== END 2017-01-14 11:12 | disposition home or self-care (01) | DRG 57 ==
LOC: D.PSYCH 15:57
PROVIDERS: Family Medicine; ADMIT Psychiatry & Neurology Psychiatry
DX: G30.1 Alzheimer's disease with late onset (principal); F02.81 Dementia in other diseases classified elsewhere, unspecified severity, with behavioral disturbance; F31.9 Bipolar disorder, unspecified; I10 Essential (primary) hypertension; I25.10 Atherosclerotic heart disease of native coronary artery without angina pectoris; J44.9 Chronic obstructive pulmonary disease, unspecified; E78.5 Hyperlipidemia, unspecified; M19.90 Unspecified osteoarthritis, unspecified site; G62.9 Polyneuropathy, unspecified; M81.0 Age-related osteoporosis without current pathological fracture; K59.00 Constipation, unspecified; M79.89 Other specified soft tissue disorders; M54.5 Low back pain; G25.0 Essential tremor